=== PATIENT | male | born 1960 | race Caucasian/White ===

== ENCOUNTER 2021-05-08 15:10 | Emergency (ER) | payer OTHER ==
[~2021-05-08] VITALS: Ht 172 cm; Wt 86.0 kg
[2021-05-08] MEDS ORDERED: NS IV 1000 ML 1,000 ML IV STA (15:41)
--- NOTE | 2021-05-08 15:41 | ED Chest Pain ---
General Stated Complaint: COVID + Source: patient Exam Limitations: no limitations History of Present Illness Date Seen by Provider: May 08, 2021 Time Seen by Provider: 15:45 Initial Comments Patient is a 60-year-old male with a history of COPD not currently on any medication presents ED with left-sided chest pain, shortness of breath and cough. Patient was seen at urgent care today diagnosed with Covid. He states he has been treated for pneumonia since April 21 of this month. He reports intermittent fevers, chills, body aches with chest pain since being diagnosed. Patient reports worsening pain to the left side of his chest with numbness and tingling to the left arm however he has numbness and tingling for several months in this left arm. No history of CA, stroke, hypertension, diabetes and high cholesterol. Reports smoking. Patient was found to be hypoxic on arrival by EMS. Was placed on 6 L high flow oxygen currently at 97%. Complaining of left- sided chest pain. Was given 4 baby aspirin. Patient states he was treated with Levaquin and steroids when he was diagnosed with pneumonia. Patient reported diarrhea over the past 2 or 3 days without any vomiting. Mild headache with dizziness and with a near syncopal episode today. No history of blood clots recent travels or surgeries. Allergies and Home Medications Allergies Coded Allergies: No Known Drug Allergies (Unverified , 05/08/21) Patient Home Medication List Home Medication List Reviewed: Yes Doxycycline Monohydrate (Doxycycline Monohydrate) 100 Mg Capsule, 100 MG PO BID Prescribed by: BRIGIDA NOLEN on 05/08/211743 Prednisone (Prednisone) 50 Mg Tab, 50 MG PO DAILY Prescribed by: BRIGIDA NOLEN on 05/08/211743 Review of Systems Review of Systems Constitutional: chills, fever, malaise EENTM: No Blurred Vision, No Double Vision, No Ear Drainage, No Ear Pain, No Mouth Pain Respiratory: Cough, Shortness of Air, SOA With Exertion, SOA at Rest Cardiovascular: Chest Pain; Denies Edema, Denies Irregular Heart Rate Gastrointestinal: Denies Abdominal Pain; Diarrhea; Denies Nausea, Denies Vomiting Genitourinary: Denies Burning, Denies Discharge, Denies Flank Pain Musculoskeletal: No back pain, No joint pain Skin: No change in color, No change in hair/nails Psychiatric/Neurological: Anxiety; Denies Depressed All Other Systems Reviewed Negative Unless Noted: Yes Physical Exam Vital Signs Vital Signs - First Documented 05/08/21 05/08/21 15:10 15:44 Temp 36.6 Pulse 86 Resp 36 B/P (MAP) 117/100 (106) Pulse Ox 98 O2 Delivery Nasal Cannula O2 Flow Rate 6.00 Capillary Refill : Height, Weight, BMI Height: '" Weight: lbs. oz. kg; BMI Method: General Appearance: No Apparent Distress, WD/WN HEENT: PERRL/EOMI, TMs Normal, Normal ENT Inspection, Pharynx Normal Neck: Full Range of Motion, Normal Inspection, Non Tender, Supple Respiratory: Chest Non Tender, Lungs Clear, Normal Breath Sounds, No Accessory Muscle Use, No Respiratory Distress, Wheezing Cardiovascular: Regular Rate, Rhythm, No Edema, No Gallop, No JVD, No Murmur Gastrointestinal: Normal Bowel Sounds, No Organomegaly, No Pulsatile Mass, Non Tender, Soft Extremity: Normal Capillary Refill, Normal Inspection, Normal Range of Motion, Non Tender, No Calf Tenderness Skin: Normal Color, Warm/Dry Focused Exam Lactate Level 05/08/21 15:30: Lactic Acid Level 1.44 Lactic Acid Level Laboratory Tests Test 05/08/21 15:30 Lactic Acid Level 1.44 MMOL/L (0.50-2.00) Progress/Results/Core Measures Results/Orders Lab Results Laboratory Tests Test 05/08/21 15:30 Range/Units White Blood Count 8.9 4.3-11.0 10^3/uL Red Blood Count 5.89 H 4.30-5.52 10^6/uL Hemoglobin 15.5 13.3-17.7 g/dL Hematocrit 49 40-54 % Mean Corpuscular Volume 83 80-99 fL Mean Corpuscular Hemoglobin 26 25-34 pg Mean Corpuscular Hemoglobin Concent 32 32-36 g/dL Red Cell Distribution Width 14.9 H 10.0-14.5 % Platelet Count 290 130-400 10^3/uL Mean Platelet Volume 9.5 9.0-12.2 fL Immature Granulocyte % (Auto) 1 % Neutrophils (%) (Auto) 62 42-75 % Lymphocytes (%) (Auto) 27 12-44 % Monocytes (%) (Auto) 9 0-12 % Eosinophils (%) (Auto) 2 0-10 % Basophils (%) (Auto) 0 0-10 % Neutrophils # (Auto) 5.5 1.8-7.8 X 10^3 Lymphocytes # (Auto) 2.4 1.0-4.0 X 10^3 Monocytes # (Auto) 0.8 0.0-1.0 X 10^3 Eosinophils # (Auto) 0.2 0.0-0.3 10^3/uL Basophils # (Auto) 0.0 0.0-0.1 10^3/uL Immature Granulocyte # (Auto) 0.0 0.0-0.1 10^3/uL Prothrombin Time 12.8 12.2-14.7 SEC INR Comment 0.9 0.8-1.4 Activated Partial Thromboplast Time 22 L 24-35 SEC D-Dimer 0.41 0.00-0.49 UG/ML Sodium Level 140 135-145 MMOL/L Potassium Level 4.0 3.6-5.0 MMOL/L Chloride Level 109 H 98-107 MMOL/L Carbon Dioxide Level 19 L 21-32 MMOL/L Anion Gap 12 5-14 MMOL/L Blood Urea Nitrogen 21 H 7-18 MG/DL Creatinine 0.74 0.60-1.30 MG/DL Estimat Glomerular Filtration Rate 105 BUN/Creatinine Ratio 28 Glucose Level 116 H 70-105 MG/DL Lactic Acid Level 1.44 0.50-2.00 MMOL/L Calcium Level 9.1 8.5-10.1 MG/DL Corrected Calcium 9.3 8.5-10.1 MG/DL Total Bilirubin 0.4 0.1-1.0 MG/DL Aspartate Amino Transf (AST/SGOT) 22 5-34 U/L Alanine Aminotransferase (ALT/SGPT) 23 0-55 U/L Alkaline Phosphatase 77 40-136 U/L Troponin I < 0.028 <0.028 NG/ML C-Reactive Protein High Sensitivity 1.48 H 0.00-0.50 MG/DL B-Type Natriuretic Peptide 14.8 <100.0 PG/ML Total Protein 7.3 6.4-8.2 GM/DL Albumin 3.8 3.2-4.5 GM/DL Lipase 24 8-78 U/L My Orders Orders - JESSI HINTON Cbc With Automated Diff (05/08/21 15:41) Comprehensive Metabolic Panel (05/08/21 15:41) Blood Culture (05/08/21 15:41) Protime With Inr (05/08/21 15:41) Partial Thromboplastin Time (05/08/21 15:41) Chest 1 View, Ap/Pa Only (05/08/21 15:41) Ed Iv/Invasive Line Start (05/08/21 15:41) O2 (05/08/21 15:41) Lactic Acid Analyzer (05/08/21 15:41) Ceftriaxone 1 Gm Pre-Mix (Rocephin 1 Gm (05/08/21 15:45) Dexamethasone Injection (Decadron Injec (05/08/21 15:45) Morphine Injection (Morphine Injection (05/08/21 15:45) Lipase (05/08/21 15:41) Hs C Reactive Protein (05/08/21 15:41) Ns Iv 1000 Ml (Sodium Chloride 0.9%) (05/08/21 15:41) Fibrin Degradation Products (05/08/21 15:47) Troponin I José Antonio (05/08/21 16:13) Bnp [place] (05/08/21 16:13) Medications Given in ED Current Medications Medications Dose Ordered Sig/Katelynn Route Start Time Stop Time Status Last Admin Dose Admin Ceftriaxone Sodium/Dextrose 50 ml @ 100 mls/hr ONCE ONCE IV 05/08/21 15:45 05/08/21 16:14 DC 05/08/21 16:55 100 MLS/HR Dexamethasone Sodium Phosphate 6 mg ONCE ONCE IV 05/08/21 15:45 05/08/21 15:46 DC 05/08/21 16:06 6 MG Morphine Sulfate 4 mg ONCE ONCE IVP 05/08/21 15:45 05/08/21 15:46 DC 05/08/21 16:07 4 MG Vital Signs/I&O 05/08/21 05/08/21 05/08/21 15:10 15:44 18:10 Temp 36.6 Pulse 86 73 Resp 36 20 B/P (MAP) 117/100 (106) 112/60 Pulse Ox 98 98 95 O2 Delivery Nasal Cannula Room Air O2 Flow Rate 6.00 Departure Impression Primary Impression: COPD exacerbation Additional Impressions: Pneumonia COVID-19 Disposition: 01 HOME, SELF-CARE Condition: Stable Departure-Patient Inst. Decision time for Depature: 17:13 Referrals: [facility],LOCAL PHYSICIAN (PCP) Primary Care Physician Patient Instructions: COVID-19 ED Scripts Prednisone (Prednisone) 50 Mg Tab 50 MG PO DAILY for 5 Days, #5 TAB Prov: JESSI HINTON 05/08/21 Doxycycline Monohydrate (Doxycycline Monohydrate) 100 Mg Capsule 100 MG PO BID for 7 Days, #14 CAP Prov: JESSI HINTON 05/08/21 Work/School Note: Work Release Form Date Seen in the Emergency Department: May 08, 2021 Return to Work: May 14, 2021 JESSI HINTON May 08, 2021 15:41
[2021-05-08] MEDS ORDERED: morphine INJ 10 MG/ML 1ML (SYR OR VIAL) IVP ONE (15:45)
[2021-05-08] MEDS ORDERED: cefTRIAXone 1 GM PRE-MIX 50 ML IV ONE (15:45)
[2021-05-08 15:52] LABS: BASOPHILS % (AUTO) 0 % (0-10); EOSINOPHILS # (AUTO) 0.2 10^3/uL (0.0-0.3); EOSINOPHILS % (AUTO) 2 % (0-10); HEMATOCRIT 49 % (40-54); HEMOGLOBIN 15.5 g/dL (13.3-17.7); LYMPHOCYTES # (AUTO) 2.4 X 10^3 (1.0-4.0); LYMPHOCYTES % (AUTO) 27 % (12-44); MEAN CORPUSCULAR HEMOGLOBIN 26 pg (25-34); MEAN CORPUSCULAR HGB CONC 32 g/dL (32-36); MEAN CORPUSCULAR VOLUME 83 fL (80-99); MEAN PLATELET VOLUME 9.5 fL (9.0-12.2); MONOCYTES # (AUTO) 0.8 X 10^3 (0.0-1.0); MONOCYTES % (AUTO) 9 % (0-12); NEUTROPHILS # (AUTO) 5.5 X 10^3 (1.8-7.8); NEUTROPHILS % (AUTO) 62 % (42-75); PLATELET COUNT 290 10^3/uL (130-400); WHITE BLOOD COUNT 8.9 10^3/uL (4.3-11.0)
[2021-05-08 15:57] LABS: ALBUMIN 3.8 GM/DL (3.2-4.5)
[2021-05-08 15:58] LABS: CALCIUM 9.1 MG/DL (8.5-10.1)
[2021-05-08 15:59] LABS: TOTAL PROTEIN 7.3 GM/DL (6.4-8.2)
[2021-05-08 16:01] LABS: BILIRUBIN,TOTAL 0.4 MG/DL (0.1-1.0)
[2021-05-08 16:02] LABS: FIBRIN DEGRADATION PRODUCTS 0.41 UG/ML (0.00-0.49); INR 0.9 (0.8-1.4); PROTHROMBIN TIME PATIENT 12.8 SEC (12.2-14.7)
[2021-05-08 16:03] LABS: CREATININE SERUM 0.74 MG/DL (0.60-1.30)
--- NOTE | 2021-05-08 16:27 | Diagnostic Imaging Report ---
INDICATION: Chest pain and COVID infection. TECHNIQUE: AP view of the chest is obtained. COMPARISON: There is no previous study for comparison. FINDINGS: Overall heart size is within normal limits. There is asymmetric increased density in right perihilar region which may represent localized pneumonitis or possible bronchitis. No pneumothorax or significant pleural fluid is seen. IMPRESSION: Right perihilar density may represent pneumonitis and/or bronchitis. Dictated by: Dictated on workstation # [id number]
[2021-05-08] MEDS ORDERED: DOXY-311 PO (17:44)
[2021-05-08] MEDS ORDERED: PRD50T PO (17:44)
[2021-05-08 18:10] VITALS: BP 112/60
== END 2021-05-08 18:09 | disposition home or self-care (01) ==
LOC: EDUNIT# 15:15 → ER 15:20
DX: U07.1 COVID-19 (principal); J44.1 Chronic obstructive pulmonary disease with (acute) exacerbation; J18.9 Pneumonia, unspecified organism
CPT/HCPCS: 36415; 71045; 80053; 83605; 83690; 83880; 84484; 85025; 85379; 85610; 85730; 86141; 87040; 93005